=== PATIENT | female | born 1950 | race American Indian/Alaskan Native ===

== ENCOUNTER 2017-12-11 05:55 | Day surgery (SDC) | payer BC ==
[2017-12-04 10:57] VITALS: BMI 28.3
[2017-12-11] MEDS ORDERED: ceFAZolin 1 gm in NS 1 GM/100 ML BAG IVPB ONE (07:05)
[2017-12-11] MEDS ORDERED: Bupivacaine HCl 0.25% PF (30 ml) Inj ONE (07:06)
[2017-12-11] MEDS ORDERED: Propofol 10 mg/ml Inj (20 ML) ONE (07:30)
[2017-12-11] MEDS ORDERED: Lactated Ringer's 1,000 ML IV ONE (07:40)
[2017-12-11] MEDS ORDERED: Midazolam 2 MG/2 ML VIAL ONE (07:54)
[2017-12-11] MEDS ORDERED: Lidocaine/Epinephrine 1% 1:100000 10 ML IJ ONE (07:59)
--- NOTE | 2017-12-11 08:19 | PCM.SURG1 ---
Surgeon's Initial Post Op Note - Surgeon's Notes Surgeon: rhea [employer] Solutions Architect: 0 Type of Anesthesia: Local Anesthesia Administered By: david Pre-Operative Diagnosis: lipoma of neck Operative Findings: same Post-Operative Diagnosis: same Operation Performed: excisoin 3.5 cm lipoma of neck Specimen/Specimens Removed: lipoma Estimated Blood Loss: EBL {In ML}: 5 Blood Products Given: N/A Drains Used: No Drains Post-Op Condition: Good Date of Surgery/Procedure: 12/11/17 Time of Surgery/Procedure: 08:19
[2017-12-11] MEDS ORDERED: HYDROmorphone 0.5 mg/0.5 ml ISec IVP PRN (08:22)
[2017-12-11 12:35] VITALS: BP 121/63; PULSE 65; RESP 15; TEMP 97.5; O2SAT 98
--- NOTE | 2017-12-11 14:13 | OP ---
PROCEDURE DATE: 12/11/2017 PREOPERATIVE DIAGNOSIS: Lipoma of the neck. POSTOPERATIVE DIAGNOSIS: Lipoma of the neck. PROCEDURE CARRIED OUT: Excision of 3.5 cm lipoma right side of the neck. SURGEON: David Fernando Jr., MD TECHNOLOGY EDUCATION INSTRUCTOR: None. ANESTHESIOLOGIST: Mr. Mann Calderon. TYPE OF ANESTHESIA: Local with sedation. INDICATIONS: The patient is a middle-aged woman who presents with a large lipoma of her neck, which is painful. Preoperatively, the risk of spinal accessory nerve injury was discussed with her. OPERATIVE FINDINGS: Lesion was removed completely, it was a multilobulated lipoma. DESCRIPTION OF PROCEDURE: The patient was given intravenous sedation. An incision was made directly over the area, had been marked and agreed on with the patient. After the infiltration of lidocaine with epinephrine, the area was excised. After containing hemostasis, wound was approximated with Monocryl sutures, and the skin closed with 5-0 nylon sutures. Blood loss was 5 mL. Operation carried out is excision of 3.5 cm lipoma of the neck. David Fernando Jr., MD
== END 2017-12-11 12:26 | disposition home or self-care (01) ==
LOC: C.SDS 05:55
PROVIDERS: ATTEND Surgery Vascular Surgery
DX: D17.0 Benign lipomatous neoplasm of skin and subcutaneous tissue of head, face and neck (principal)
CPT/HCPCS: 11424; 88304; J0690; J2001; J2250; J2405; J2704; J2765; J3010; J7120

== ENCOUNTER 2017-12-18 18:17 | Emergency (ER) | payer BC, OTHER ==
[2017-12-18 18:17] VITALS: BMI 28.3
[2017-12-18 18:59] VITALS: BP 122/61; PULSE 82; RESP 20; TEMP 98.2; O2SAT 97
--- NOTE | 2017-12-18 19:25 | C.PDOC ---
History Of Present Illness 67yo female, presents to ED for evaluation of right hip and thigh pain, developed over past few hours after she sustained a mechanical fall. Patient states she slipped on grapes in a grocery store and landed on her right buttock and leg. She reports the pain is localized and worse with weight bearing. She denies any head injury, loss of consciousness, headache, dizziness, visual changes, neck pain, chest pain, SOB, dyspnea, abd. pain, nausea or vomiting, denies obvious deformity, weakness, sensory or vascular deficits to Right leg.. She has no other medical complaints. Time Seen by Provider: 12/18/17 18:29 Chief Complaint (Nursing): Hip Pain History Per: Patient History/Exam Limitations: no limitations Onset/Duration Of Symptoms: Hrs Current Symptoms Are (Timing): Still Present Additional History Per: Patient - Hip Description Of Injury: Fell Currently Unable To: Bear Weight Past Medical History Reviewed: Historical Data, Nursing Documentation, Vital Signs Vital Signs: Last Vital Signs Temp 98.2 F 12/18/17 18:56 Pulse 82 12/18/17 18:56 Resp 20 12/18/17 18:56 BP 122/61 12/18/17 18:56 Pulse Ox 97 12/18/17 19:29 - Medical History PMH: HTN Surgical History: No Surg Hx Family History: States: No Known Family Hx - Social History Hx Alcohol Use: No Hx Substance Use: No - Immunization History Hx Tetanus Toxoid Vaccination: No Hx Influenza Vaccination: No Hx Pneumococcal Vaccination: No Review Of Systems Except As Marked, All Systems Reviewed And Found Negative. Eyes: Negative for: Vision Change Gastrointestinal: Negative for: Vomiting Musculoskeletal: Positive for: Leg Pain (right hip, right thigh pain) Neurological: Negative for: Weakness, Numbness, Headache, Dizziness Physical Exam - Physical Exam Appears: Well, Non-toxic, No Acute Distress Skin: Warm, Dry, No Ecchymosis Head: Atraumatic, Normacephalic Eye(s): bilateral: PERRL Nose: No Deformity, No Tenderness Oral Mucosa: No Drooling, No Trismus Neck: Normal ROM, No Midline Cervical Tenderness, No Paracervical Tenderness, No Step Off Deformity, Supple Chest: Symmetrical, No Deformity, No Tenderness Cardiovascular: Rhythm Regular Respiratory: No Decreased Breath Sounds, No Accessory Muscle Use, No Stridor, No Wheezing Gastrointestinal/Abdominal: Soft, No Tenderness Back: No Vertebral Tenderness, No Paraspinal Tenderness Extremity: Normal ROM (Right LE), Tenderness (mild tenderness over right hip area, no palpable defomrity, no skin changes.), No Pedal Edema, No Deformity, No Swelling, Other (no deformity of Right leg, no shortening, ecchymosis noted to right hip) Neurological/Psych: Oriented x3, Normal Speech, Normal Cognition, Normal Motor, Normal Sensation, Normal Reflexes ED Course And Treatment O2 Sat by Pulse Oximetry: 97 (RA) Pulse Ox Interpretation: Normal - Other Rad Right hip, pelvis X-Ray: Interpreted by Me, Viewed By Me Interpretation: (-) acute fx or dislocation Right femur X-Ray: Interpreted by Me, Viewed By Me Interpretation: (-) fx L-spine X-Ray: Interpreted by Me, Viewed By Me Interpretation: (-) acute fx or sublux Progress Note: XR Right femur, XR right hips, XR LS spine ordered. Patient given Motrin 600mg PO. On re-eval, pt is afebrile, hemodynamicaly stable. non- toxic. Ambulatory in ED with stable gait. Head: AT/NC. ENT: no acute findings. neck: Supple, (-) midine tenderness. Lungs: CTA B/L, BS equal B/L. Abd: benign , (-) guarding, (-) rebound. FAROM of RLE, no deformity, no neurovscular deficits. Neurologicaly intact. Imaging review and appears normal. Pt has clinical findings c/w Rigt hip contusion s/p mechanical fall. Pt advised and ref. to f/u with Ortho in 2-3 days for re-eavl. return if any new changes. Disposition Counseled Patient/Family Regarding: Studies Performed, Diagnosis, Need For Followup, Rx Given - Disposition Referrals: Sukumar Brown MD, PhD [Staff Provider] - Manjeet Quiros III, MD [Staff Provider] - Disposition: HOME/ ROUTINE Disposition Time: 19:43 Condition: STABLE Additional Instructions: LIght duty Avoid prolong walking for 1 week Take pain medication as need as prescribed Follow up with PMD, Orthopedist in 2-3 days for re-evaluation. return to ED if any worsening or new changes. Instructions: Hip Pain Forms: [facility] (Romanian) - Clinical Impression Clinical Impression: Contusion, hip - PA / BLEACHER OPERATOR / Resident Statement MD/DO has reviewed & agrees with the documentation as recorded. - Scribe Statement The provider has reviewed the documentation as recorded by the Scribe (Kym Kerr) Provider Attestation: All medical record entries made by the Scribe were at my direction and personally dictated by me. I have reviewed the chart and agree that the record accurately reflects my personal performance of the history, physical exam, medical decision making, and the department course for this patient. I have also personally directed, reviewed, and agree with the discharge instructions and disposition.
--- NOTE | 2017-12-19 10:05 | RAD ---
PROCEDURE: Radiographs of the Lumbar Spine. HISTORY: injury COMPARISON: No prior. FINDINGS: BONES: Normal alignment. No listhesis. No fracture. Spondylosis-mild moderate L3 level DISC SPACES: Disc space narrowing at all levels OTHER FINDINGS: Right L5-S1 hypertrophic facet arthrosis. IMPRESSION: No fracture or subluxation. Right L5-S1 hypertrophic facet arthrosis.
--- NOTE | 2017-12-19 11:48 | RAD ---
PROCEDURE: RIGHT HIP WITH PELVIS HISTORY: injury COMPARISON: None available. TECHNIQUE: Frontal views of the pelvis with frog-leg lateral view right hip submitted for interpretation. FINDINGS: No acute fracture of the pelvic ring or the right hip with the right hip exhibiting cortical sclerosis and limited osteophyte development compatible degenerative joint disease. No subluxation or dislocation is identified. Degenerative left hip and bilateral sacroiliac joint changes are identified. Pubic symphysis appears intact. No destructive bony lesion appreciated throughout the examination. Small calcifications suggesting phleboliths seen in the inferior pelvis soft tissues with advanced facet arthropathy appreciate the inferior lumbar spine as well as multilevel spondylosis. IMPRESSION: Degenerative right hip joint changes with similar changes incidentally noted at the left hip joint and bilateral sacroiliac joints. No acute fracture or dislocation right hip joint or acute fracture through the pelvic ring.
--- NOTE | 2017-12-19 12:03 | RAD ---
PROCEDURE: Right Femur Radiographs. HISTORY: injury COMPARISON: None. TECHNIQUE: AP and Lateral Radiographs of the right femur. FINDINGS: FEMUR: No acute fracture identified throughout the right knee. Relatively faint popcorn like calcifications at the distal diaphysis of the right femur may indicate bone infarction or an enchondroma. Limited and endosteal thickening is also appreciate the mid diaphysis from an indeterminate etiology. Consider possible prior trauma. If patient is symptomatic at the mid to distal femur then follow-up MRI or nuclear bone scan should be considered on an elective basis. SOFT TISSUES: Normal. OTHER FINDINGS: Incidental degenerative changes are noted at the right knee. IMPRESSION: No acute fracture appreciated. Mildly heterogeneous changes seen at the mid and distal right femoral diaphysis as discussed above for which follow-up elective MRI or nuclear bone scan should be considered if patient is symptomatic in these areas.
== END 2017-12-18 20:06 | disposition home or self-care (01) ==
LOC: C.ER 18:17
DX: S70.01XA Contusion of right hip, initial encounter (principal); W01.0XXA Fall on same level from slipping, tripping and stumbling without subsequent striking against object, initial encounter; Y92.512 Supermarket, store or market as the place of occurrence of the external cause